=== PATIENT | male | born 1995 | race African-American/Black ===

== ENCOUNTER 2018-11-23 10:36 | Emergency (ER) | payer SELFPAY ==
[2018-11-23] MEDS ORDERED: Ketorolac Tromethamine 30 MG/ML VIAL ONE (11:54)
== END 2018-11-23 12:11 | disposition home or self-care (01) ==
LOC: ERS 10:36
DX: K04.7 Periapical abscess without sinus (principal); K02.9 Dental caries, unspecified
CPT/HCPCS: 96372; J1885

== ENCOUNTER 2019-01-19 15:14 | Emergency (ER) | payer SELFPAY ==
[2019-01-19] MEDS ORDERED: diphenhydrAMINE 25 MG CAP ONE (15:32)
[2019-01-19] MEDS ORDERED: predniSONE 20 MG TAB ONE (15:32)
[2019-01-19] MEDS ORDERED: Famotidine 20 MG TAB ONE (15:32)
== END 2019-01-19 16:23 | disposition home or self-care (01) ==
LOC: ERS 15:14
DX: L50.0 Allergic urticaria (principal)
CPT/HCPCS: 99283; J7512; Q0163